=== PATIENT | female | born 1990 | race Caucasian/White ===

== ENCOUNTER 2024-07-17 11:32 | Outpatient (CLI) | payer OTHER, SELFPAY ==
--- NOTE | ~2024-07-17 | XR_ITS ---
EXAMINATION: XR hysterosalpingogram DATE: 07/17/2024 12:40 INDICATION: Irregular menstruation TECHNIQUE: 2 fluoroscopic images were obtained during contrast infusion into the endometrial canal of the uterus by the primary physician. Fluoroscopy exposure time was 0.3 minutes. Total DAP was 1.515 Gycm^2 . FINDINGS: The uterine cavity demonstrates normal morphology. The fallopian tubes are normal in caliber and pat ent bilaterally. There is normal spillage of contrast into the peritoneum on both sides. IMPRESSION: 1. Normal hysterosalpingogram. Reviewed, dictated and finalized at location A.
== END 2024-07-17 11:33 | disposition home or self-care (01) ==
PROVIDERS: Visit Provider Obstetrics & Gynecology
DX: N92.6 Irregular menstruation, unspecified (principal)
CPT/HCPCS: 58340; 74740; Q9966